=== PATIENT | male | born 1955 | race Hispanic/Latino ===

== ENCOUNTER 2022-11-26 14:35 | Outpatient (CLI) | payer OTHER | END 2022-11-26 14:36 | disposition home or self-care (01) | LOC: BICCT 14:35 | PROVIDERS: ATTEND Nurse Practitioner Family | DX: Z12.2 Encounter for screening for malignant neoplasm of respiratory organs (principal); F17.210 Nicotine dependence, cigarettes, uncomplicated | CPT/HCPCS: 71046; 71271 ==

== ENCOUNTER 2023-05-31 13:10 | Outpatient (CLI) | payer OTHER | END 2023-05-31 13:11 | disposition home or self-care (01) | LOC: BICCT 13:10 | PROVIDERS: ATTEND Nurse Practitioner Family | DX: Z12.2 Encounter for screening for malignant neoplasm of respiratory organs (principal); R91.8 Other nonspecific abnormal finding of lung field; F17.210 Nicotine dependence, cigarettes, uncomplicated | CPT/HCPCS: 71271 ==

== ENCOUNTER 2024-05-31 13:14 | Outpatient (CLI) | payer OTHER | END 2024-05-31 13:15 | disposition home or self-care (01) | LOC: BICCT 13:14 | PROVIDERS: ATTEND Nurse Practitioner Family | DX: Z12.2 Encounter for screening for malignant neoplasm of respiratory organs (principal); F17.210 Nicotine dependence, cigarettes, uncomplicated | CPT/HCPCS: 71271 ==